=== PATIENT | female | born 1940 | race Caucasian/White ===

== ENCOUNTER 2019-07-17 12:24 | Emergency (ER) | payer MEDICARE, SELFPAY ==
[2019-07-17] VITALS (8 sets, daily range): BP systolic 140–167; BP diastolic 65–107; PULSE 61–85; RESP 16–20; TEMP 36.8; O2SAT 98–100
--- NOTE | ~2019-07-17 | XR_ITS ---
EXAMINATION: XR chest 2V 07/17/2019 13:11 INDICATION: Weakness. Chest pain. Syncope. PROCEDURE: 2 view chest COMPARISON: No prior studies for comparison. FINDINGS: The lungs are clear. The cardiomediastinal silhouette is within normal limits. There are no pleural effusions. There is no pneumothorax suspected. There is a large hiatal hernia. IMPRESSION: 1: NO ACUTE CARDIOPULMONARY DISEASE. Reviewed, dictated and finalized at location A.
--- NOTE | 2019-07-17 12:41 | ECG_ITS ---
Measurements Intervals [place] Rate: 62 P: 40 HI: 156 QRS: -46 QRSD: 88 T: 6 QT: 420 QTc: 428 Interpretive Statements SINUS RHYTHM ATRIAL PREMATURE COMPLEX LEFT AXIS DEVIATION LOW QRS VOLTAGE IN LIMB LEADS POOR R WAVE PROGRESSION, ANTERIOR LEADS BORDERLINE T WAVE ABNORMALITY- INFERIOR LEADS BASELINE WANDER- III, AVL, AVF, V3-V4 BORDERLINE ECG Electronically Signed On 07-19-2019 14:12:04 CDT by Alphonso Caal D.O.
[2019-07-17 12:56] LABS: Basophils Absolute Auto 0.1 K/mm3 (0.0-0.1); Basophils Percent Auto 0.6 % (0.2-1.2); Eosinophils Absolute Auto 0.1 K/mm3 (0-0.3); Hematocrit 47.3 % (37.0-47.0); Hemoglobin 15.3 g/dL (12.0-15.0); Immature Granulocyte Absolute 0.06 K/mm3 (0.00-0.031); Immature Granulocyte Percent A 0.5 % (0-0.5); Lymphocytes Absolute Auto 1.52 K/mm3 (0.9-3.2); Mean Corpuscular HGB Conc 32.3 g/dl (32-36); Mean Corpuscular Hemoglobin 29.5 pg (26-34); Mean Corpuscular Volume 91.3 fl (80-100); Mean Platelet Volume 10.5 fl (7.4-10.4); Monocytes Percent Auto 8.1 % (2.6-8.5); Neutrophils Percent Auto 76.8 % (45.5-73.1); Platelet Count Result 276 k/mm3 (150-375); Red Blood Count 5.18 M/mm3 (4.2-5.4); White Blood Count 11.7 K/mm3 (4.5-10.0)
[2019-07-17 13:09] LABS: Blood Urea Nitrogen 21 mg/dL (7-17); Calcium 9.3 mg/dL (8.4-10.2); Carbon Dioxide 27 mmol/L (22-30); Chloride 104 mmol/L (98-107); Estimated CRCL calculation 43 ml/min; Estimated Glomerular Filt Rate 48; Glucose 137 mg/dL (65-105); Potassium 4.3 mmol/L (3.4-5.0); Sodium 136 mmol/L (137-145)
[2019-07-17 13:13] LABS: Prothrombin Time 13.2 Seconds (11.1-14.7)
[2019-07-17 13:14] LABS: Partial Thromboplastin Time 25.6 SECONDS (22.3-36.8)
[2019-07-17 13:15] LABS: Lipase 169 U/L (23-300)
[2019-07-17 13:27] LABS: Troponin I < 0.012 ng/mL (0.000-0.034)
[2019-07-17] MEDS: SODIUM CHLORIDE 0.9% IV 1,000 ML 999 ML IV CONT (14:12)
--- NOTE | 2019-07-17 14:50 | ED.GENADULT ---
HPI - General Adult General Chief complaint: Weakness Stated complaint: WEAKNESS Time Seen by Provider: 07/17/19 12:29 History of Present Illness HPI narrative: Patient is a 78-year-old female who presents the ER with complains of chest pain yesterday evening and development of diarrhea and weakness today. Patient reports persistent fatigue at rest and with any sort of exertion. No fevers or chills or sweats. No known sick contacts. Symptoms started after eating a taco last night. No one else in the home is sick. No blood in stool. No persistent chest pain today. Patient reports she is bloated and has been belching. Related Data Home Medications Medication Instructions Recorded Confirmed dorzolamide-timolol [Cosopt] 1 drp OPHTHALMIC (EYE) BID 07/17/19 lisinopril-hydrochlorothiazide 1 tablet PO DAILY 07/17/19 metoprolol tartrate 50 mg PO DAILY 07/17/19 jjkpwwccpmyp-dsfurlsw-xkwvez 1 tablet PO DAILY 07/17/19 [Multivitamin 50 Plus] omeprazole 20 mg PO DAILY 07/17/19 Allergies Allergy/AdvReac Type Severity Reaction Status Date / Time erythromycin base AdvReac Nausea Verified 07/17/19 12:47 Review of Systems Review of Systems: All systems reviewed & are unremarkable except as noted in HPI and below Constitutional: Constitutional: Denies chills, Reports fatigue, Denies fever(s) and Reports weakness ENT: Denies nasal congestion and Denies sore throat Cardiovascular: Cardiovascular: Reports chest pain and Denies radiating jaw, neck or arm pain Respiratory: Respiratory: Denies cough, Denies dyspnea and Denies wheezing Gastrointestinal: Gastrointestinal: Reports abdominal pain, Reports bloating, Reports diarrhea, Denies nausea and Denies vomiting Genitourinary: Genitourinary: Denies nocturia and Denies dysuria Neurologic: Denies dizziness, Denies syncope, Denies focal weakness and Denies numbness [facility] Past Medical History Medical History (Updated 07/17/19 @ 16:39 by Americo Sheriff MD) Breast cancer GERD (gastroesophageal reflux disease) Hypertension Uterine cancer Surgical History Surgical History (Updated 07/17/19 @ 16:01 by Americo Sheriff MD) H/O lumpectomy History of cholecystectomy Social History Social History (Updated 07/17/19 @ 15:59 by Americo Sheriff MD) Smoking status: Never smoker Substance use: never Gender identity (if verbalized by the patient): Female Exam Narrative: Exam Narrative: GENERAL: Well-appearing, well-nourished, and in no acute distress. HEAD: Normocephalic, atraumatic. ENT: Mucous membranes moist. CHEST: Clear to auscultation. No respiratory distress. HEART: Regular rate and rhythm. No murmur heard. Normal peripheral pulses. ABDOMEN: Soft, nontender, nondistended, hyperactive bowel sounds. EXTREMITIES: Normal range of motion. No edema. SKIN: Warm, dry, no rash. NEURO: Alert and oriented x3. PSYCH: Normal mood and affect. Course Course Emergency Course: Patient and family informed of results. Have also spoken to the patient's primary care physician from [facility] Dr. Andino. He has been informed of all lab findings and about the EKG. He feels comfortable with patient's discharge home. He would like her to follow-up in his office and patient is aware of this. No chest pain while in the ER. She has been up and ambulatory with a steady gait. She had modest improvement with IV fluid and her condition. She has been tolerating oral fluids. Vital Signs Vital signs: Vital Signs Temperature 98.2 F 07/17/19 12:23 Pulse Rate 63 07/17/19 12:23 Respiratory Rate 07/17/19 12:23 Blood Pressure 152/65 H 07/17/19 12:23 Pulse Oximetry 99 07/17/19 12:23 Temperature 98.2 F 07/17/19 12:23 Pulse Rate 69 07/17/19 15:22 Respiratory Rate 20 07/17/19 15:22 Blood Pressure 167/95 H 07/17/19 15:22 Pulse Oximetry 100 07/17/19 15:22 Medical Decision Making Vital Signs Vital Signs: Vital Signs Temperature 98.2
[2019-07-17 15:45] LABS: Add Urine Microscopic? YES; Appearance Urine Cloudy (Clear); Bacteria Urine 2+ /hpf; Bilirubin Urine Negative (Negative); Blood Urine Negative (Negative); Color Urine Yellow (Yellow); Glucose Urine UA Negative (Negative); Ketones Urine Negative (Negative); Leukocyte Esterase Ur Negative LEU/UL (Negative); Mucus Urine Few /lpf; Nitrate Urine Negative (Negative); Protein Urine 1+ mg/dL (Negative); Specific Grav Ur 1.011 (1.001-1.035); Squamous Epithelial Cell Urine Many /hpf (Few); Urobilinogen Urine Negative mg/dL (<2.0); WBC Urine 0-3 /hpf
[2019-07-17 16:16] LABS: Troponin I < 0.012 ng/mL (0.000-0.034)
== END 2019-07-17 17:35 | disposition home or self-care (01) ==
PROVIDERS: Emergency Provider Emergency Medicine
DX: R53.1 Weakness (principal); R07.9 Chest pain, unspecified; K21.9 Gastro-esophageal reflux disease without esophagitis; I10 Essential (primary) hypertension; Z85.3 Personal history of malignant neoplasm of breast; Z85.42 Personal history of malignant neoplasm of other parts of uterus; I49.1 Atrial premature depolarization; R94.31 Abnormal electrocardiogram [ECG] [EKG]
CPT/HCPCS: 36415; 71046; 80048; 81001; 83690; 84484; 85025; 85610; 85730; 93005; 96360; 99284; J7030

== ENCOUNTER 2024-03-28 11:34 | Emergency (ER) | payer MEDICARE, SELFPAY ==
--- NOTE | ~2024-03-28 | XR_ITS ---
EXAMINATION: XR chest 2V DATE: 03/28/2024 12:39 INDICATION: Cough and fever with congestion TECHNIQUE: frontal and lateral views of the chest were obtained. COMPARISON: Chest radiograph dated 07/17/2019 FINDINGS: Density is an air-fluid level within a large retrocardiac hiatal hernia. Lungs remain clear with no f ocal airspace opacities, pulmonary edema, pleural effusion or pneumothorax. Heart size is normal. Mil d thoracic kyphosis with moderate spondylosis. IMPRESSION: 1. No acute cardiopulmonary disease. 2. Large hiatal hernia. Reviewed, dictated and finalized at location B. 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
[2024-03-28 11:46] VITALS: BP 176/69; PULSE 105; RESP 20; TEMP 38.3; O2SAT 94
--- NOTE | 2024-03-28 12:02 | ED.URI ---
HPI - URI/Sore Throat General Chief Complaint: Upper Respiratory Infection Stated Complaint: congestion/sob Time Seen by Provider: 03/28/24 12:00 Source: patient, family, RN notes reviewed and old records reviewed Mode of arrival: ambulatory Limitations: no limitations History of Present Illness HPI Narrative: 83 year old female presents to [facility] care accompanied by son with complaints of cough with congestion and fever since yesterday. Patient reports that she has history of asthma and has history of a-fib and takes blood thinner daily and also has pacemaker. Patient states that she notes some shortness of breath with exertion, reports that she does not have an inhaler., has not taken any OTC medications for her symptoms.Patient reports no sore throat or any ear pain. MD elicited complaint: fever, cough and other (some shortness of breath) Pertinent past history: asthma and other (afib) Onset (ago): day(s) (day 2 of symptoms) Consistency: constant Severity: moderate Able to tolerate fluids by mouth: Yes Treatments prior to arrival: none Related Data Home Medications ?Medication ?Instructions ?Recorded ?Confirmed ?Last Taken ?Type dorzolamide 22.3 mg-timolol 6.8 1 drp ophthalmic (eye) BID 07/17/19 07/17/19 History mg/mL eye drops (Cosopt) lisinopril 20 1 tablet PO DAILY 07/17/19 07/17/19 History mg-hydrochlorothiazide 25 mg tablet metoprolol tartrate 50 mg tablet 50 mg PO DAILY 07/17/19 07/16/19 History vngxwuuyrrix-dqepabqk-bkwrnr 1 tablet PO DAILY 07/17/19 07/16/19 History tablet (Multivitamin 50 Plus tablet) omeprazole 20 mg capsule,delayed 20 mg PO DAILY 07/17/19 07/16/19 History release apixaban 5 mg tablet (Eliquis) mg 03/28/24 Unknown History digoxin 125 mcg (0.125 mg) tablet 03/28/24 Unknown History losartan 25 mg tablet mg 03/28/24 Unknown History metoprolol succinate 100 mg mg PO 03/28/24 Unknown History tablet,extended release 24 hr Allergies Allergy/AdvReac Type Severity Reaction Status Date / Time erythromycin base AdvReac Nausea Verified 07/17/19 12:47 Review of Systems Review of Systems: CONSTITUTIONAL: Reports malaise, chills, sweats, or fever. EYES: Denies visual changes, redness, or discharge. ENT: Reports rhinorrhea, congestion,no sinus pain,no otalgia and no sore throat. CARDIOVASCULAR: Denies chest pain, palpitations, positive for peripheral edema. RESPIRATORY: Reports cough.? states dyspnea with exertion. GASTROINTESTINAL: Denies abdominal pain, nausea, vomiting, diarrhea SKIN: Denies rash or itching. MUSCULOSKELETAL: Denies myalgia. NEUROLOGIC: Denies headache. All systems reviewed & are unremarkable except as noted in HPI and below PMFSH Past Medical History Medical History (Updated 03/30/24 @ 09:19 by Maggie Martin NP) Asthma Hx of assisted use of blood thinners Pacemaker Atrial fibrillation Breast cancer Uterine cancer GERD (gastroesophageal reflux disease) Hypertension Surgical History Surgical History History of hysterectomy History of cholecystectomy H/O lumpectomy Social History Social History Smoking status: Never smoker Substance use: never Gender identity (if verbalized by the patient): Female Comments At time of signature, agree with nursing past medical, surgical, social and family history. There is no relevant family history pertinent to the presenting complaint Exam Narrative: GENERAL: chronic ill-appearing, well-nourished, and in no acute distress. HEAD: Normocephalic EYES: PERRLA, conjunctivae clear ENT: Nares clear, turbinates edematous and erythematous, clear discharge. Mucous membranes moist. TM pearly beatty with dull light reflex bilaterally; no tragal tenderness. Oropharynx erythematous without lesions. Tonsils not enlarged and without exudate, no drooling, no hoarseness, no trismus, uvula midline.post nasal drainage noted NECK: Supple. No lymphadenopathy CHEST:Decreased breath sounds to auscultation, breath sounds equal. No wheezing, rhonchi, rales, or stridor. No respiratory distress, speaks in full sentences.reports CASTREJON,SAO2 94% on room air HEART: Regular rate and rhythm. No murmur heard. SKIN: Warm, dry, no rash. NEURO: Alert and oriented x3. PSYCH: Normal mood and affect Course Course Emergency Course: Patient is aware of diagnosis, understands and agrees to treatment plan.? Anticipatory guidance given.? Patient agrees to follow-up as directed and is aware of reasons to seek care at the emergency department. Portions of this record may have been created with voice recognition software Level of Care: Express Care Visit Vital Signs Vital signs: Vital Signs Temperature 38.3 C H 03/28/24 11:46 Pulse Rate 105 H 03/28/24 11:46 Respiratory Rate 20 03/28/24 11:46 Blood Pressure 176/69 H 03/28/24 11:46 Pulse Oximetry 94 03/28/24 11:46 Oxygen Delivery Room Air 03/28/24 11:46 Temperature 38.3 C H 03/28/24 11:46 Pulse Rate 105 H 03/28/24 11:46 Respiratory Rate 20 03/28/24 11:46 Blood Pressure 176/69 H 03/28/24 11:46 Pulse Oximetry 94 03/28/24 11:46 Oxygen Delivery Room Air 03/28/24 11:46 Reviewed MDM - URI/Sore Throat MDM Narrative Medical decision making narrative: Differential diagnosis considered: Ding virus, strep pharyngitis, allergic rhinitis, upper respiratory tract infection, sinusitis, rhinosinusitis, nasopharyngitis. viral pharyngitis, otitis media, otitis externa, pneumonia, bronchitis, viral cough syndrome, viral syndrome, and influenza.? Exam findings show no acute concerns or changes; patient is non-toxic appearing and is in no distress.? Patient is appropriate for outpatient treatment and follow-up. Differential Diagnosis Differential diagnosis: Likely upper respiratory infection, viral infection, influenza and other (cough,pneumonia) Medical Records Attestation: I reviewed the patient's medical records. Lab Data Attestation: I reviewed the patient's lab results. Lab results narrative: Influenza A negative, Influenza B negative, COVID antigen negative Labs: Lab Results 03/28/24 Range/Units 11:52 POC Influenza A Ag Negative (Negative) POC Influenza B Ag Negative (Negative) Imaging Data Attestation: I personally reviewed and interpreted this imaging study as follows: My impression: no acute cardiopulmonary disease, large hiatal hernia Radiologist's impression: [facility] [address] [place] [address] XRay Report Signed Patient: Margarita Lloyd : 1940 MR#: [id number] Age: 83 Acct:[id number] Loc: [facility] ADM Date: 03/28/24Attending Dr: Ordering Physician: Maggie Martin APRN Date of Service: 03/28/24 Procedure(s): XR chest 2V Accession Number(s): [id number] cc: Maggie Martin APRN~ EXAMINATION: XR chest 2V DATE: 03/28/2024 12:39 INDICATION: Cough and fever with congestion TECHNIQUE: frontal and lateral views of the chest were obtained. COMPARISON: Chest radiograph dated 07/17/2019 FINDINGS: Density is an air-fluid level within a large retrocardiac hiatal hernia. Lungs remain clear with no focal airspace opacities, pulmonary edema, pleural effusion or pneumothorax. Heart size is normal. Mild thoracic kyphosis with moderate spondylosis. IMPRESSION: 1. No acute cardiopulmonary disease. 2. Large hiatal hernia. Reviewed, dictated and finalized at location B. ORN PHOTOGRAPHER Please be advised this is a medical document. It is intended for [id number] communication. It is written in medical language and may contain unfamiliar abbreviations or verbiage. Medical documents are intended to carry relevant information, facts as evident, and the clinical opinion of the practitioner at the time of the encounter. This report may have been done utilizing a voice recognition system. Attempts have been made to correct errors. However, there may be uncorrected grammatical, spelling, and recognition errors present. The file time of this note does not necessarily represent the time the patient was seen. Dictated By: Trevor Adams MD 03/28/24 1244 Signed By: <Electronically signed by Trevor Adams MD in OV> Critical Care Time Critical Care Time Critical Care Time: No Discharge Plan Discharge Clinical Impression: URI with cough and congestion Patient Disposition: Home, Self-Care Condition: Stable Instructions: Antibiotic Form, Upper Respiratory Infection (ED) Additional Instructions: Increase fluids especially juices and water Vijz-vnw-awbhojm cough and cold medicine of your choice for your symptoms Zyrtec,Claritin or Dasha with Coricidin brand decongestant daily Continue your inhaler/nebulizer as directed Tylenol for fevers heat to the face 20-30 minutes 4-6 times a day for pain Salt water gargles, throat lozenges or throat sprays as desired Antibiotic as directed--finished the medication If your symptoms persist, change or worsen significantly before you can contact your personal physician then please, without delay, go to the emergency department for further evaluation. Follow-up with PCP in 7-10 days or sooner if needed Follow up with PCP soon in regards to your blood pressure which is elevated above threshold for referral. Blood pressure above 120/80 may indicate pre-hypertension. 176/69 Monitor for fevers Patient Language: Bengali Prescriptions: New amoxicillin 500 mg capsule 500 mg PO Q8H Qty: 30 0RF Rx Instructions: take all doses albuterol sulfate 90 mcg/actuation HFA aerosol inhaler 2 puff inhalation QID PRN (Reason: shortness of breath or wheezing) Qty: 6.7 0RF No Action metoprolol succinate 100 mg tablet extended release 24 hr PO losartan 25 mg tablet digoxin 125 mcg (0.125 mg) tablet Eliquis 5 mg tablet metoprolol tartrate 50 mg Tablet 50 mg PO DAILY omeprazole 20 mg Capsule,Delayed Release(Dr/Ec) 20 mg PO DAILY lisinopril-hydrochlorothiazide 20-25 mg Tablet 1 tablet PO DAILY dorzolamide-timolol [Cosopt] 22.3-6.8 mg/mL Drops 1 drp OPHTHALMIC (EYE) BID Multivitamin 50 Plus Tablet 1 tablet PO DAILY promethazine 25 mg tablet 25 mg PO Q6H PRN (Reason: nausea and vomiting) Qty: 10 0RF Follow-up/Referrals: PHYSICIAN NOT ON STAFF,NONSTAFF [Primary Care Provider] - Time of Disposition: 13:04 Quality [place]ender Coma Scale Eyes: Open Verbal: Oriented and Alert Motor: Follows Commands Callender Coma Total Score: 15
[2024-03-28 12:45] LABS: EDINFLUASCREEN Negative (Negative); EDINFLUBSCREEN Negative (Negative)
== END 2024-03-28 13:15 | disposition home or self-care (01) ==
PROVIDERS: Emergency Provider Registered Nurse
DX: J06.9 Acute upper respiratory infection, unspecified (principal); I48.91 Unspecified atrial fibrillation; I10 Essential (primary) hypertension; Z79.01 Long term (current) use of anticoagulants; Z85.42 Personal history of malignant neoplasm of other parts of uterus
CPT/HCPCS: 71046; 87804; 99213; G0463

== ENCOUNTER 2024-04-09 14:46 | Emergency (ER) | payer MEDICARE, SELFPAY ==
--- OUTSIDE RECORDS SUMMARY | 2024-04-09 15:21 | XMS_ITS ---
Author Organization [facility] Address [address] [address] Care Team Providers Care Cell Stripper Final Name Role Phone Sakshi Hernandez Primary Care Provider Unavaila Jordyn Travis Unavailable ALLERGIES Allergen (clinical drug ingredient) Drug/Non Drug Allergy documented on EMR Reaction Allergy Type Onset Date Status erythromycin Erythromycin Unknown Drug Allergy A ctive RESULTS Component Value Reference Range Notes TSH Reviewed date:01/15/2024 01:00:13 PM Interpretation: Performing Lab:[facility], [employer] [facility], Phone - [phone], Director - Edward Notes/Report: TSH 2.790 0.450-4.500 uIU/mL T4, Free Reviewed date:01/15/2024 11:02:28 AM Interpretation: Performing Lab:[facility], [address] [place] [address], Phone - [phone], Director - Edward Notes/Report: T4,Free(Direct) 1.18 0.82-1.77 ng/dL T3, Total Reviewed date:01/15/2024 12:39:45 PM Interpretation: Performing Lab:[facility], [employer] [facility], Phone - [phone], [facility] Notes/Report: Triiodothyronine (T3) 120 71-180 ng/dL REASON FOR VISIT Nodular Goiter MEDICATIONS Medication SIG (Take, Route, Frequency, Duration) Notes Start Date End Date Status Eliquis 5 MG 1 tablet Orally Twic e a day for 30 day(s) Active Multivitamin - 1 tablet Orally Once a day for 30 day(s) Active Losartan Potassium 25 MG 1 tablet Orally Once a day for 30 day(s) Active Metoprolol Tartrate 75 MG 1 tablet with food Orally Two Times a Day Active Furosemide 40 MG 1 tablet Orally Once a day Active Xanax 0.5 MG 1 tablet Orally as needed Active Digoxin 125 MCG 1 tablet Orally m w f Active PreserVision AREDS - as directed Orally Two Times a Day Active SOCIAL HISTORY Tobacco Use: Social History Observation Description Date Details (start date - stop date) Never Smoker NA - NA Sex Assigned At : Social History Observation Description Sex Assigned At Unknown Tobacco Use/Smoking Question Answer Notes Are you a nonsmoker VITAL SIGNS BMI 33.80 kg/m2 01/10/2024 Blood pressure systolic 122 mm Hg 01/10/20 Blood pressure diastolic 68 mm Hg 024 Heart Rate 64 /min 01/10/2024 Height 67 in 01/10/2024 Weight 215.8 lbs 01/10/2024 wt 205 on 06-05-23 Encounters Encounter Location Date Provider Diagnosis [facility] [address] [address] 01/10/2024 Jordyn Aguila Nodular goiter E04.9 ASSESSMENTS Encounter Date Diagnosis Assessment Notes Treatment Notes Treatment Clinical Notes 01/10/2024 Nodular goiter (ICD-10 - E04.9) 06/03 FNA biopsy L thyroid nodule AUS 05/06 US thyrid shows diffuse heterogeneity. In the L thyroid lobe there is a lower pole hypoechoic nodule meauring 1.7 x 1.3 x 1.2 cm (stable) and a hypoechoic upper pole nodule measuring 2.4 x 0.9 x 1.5 cm (prior 2.1 x 1.2 x 1.2 cm). 04/04 There is diffuse heterogeneity. In the L mid-lobe there is a complex nodule measuring 2.2 x 1.1 cm. In the L lower lobe there is a complex nodule measuring 2.4 x 1.6 cm. Prior 2 L thyroid nodules measuring 2.1 x 1.8 cm were measured. 11/01 US thyroid shows 2 left hyperechoic thyroid nodules measuring 2.1 cm amd 1.8 cm (TR3) 11/01 CT chest shows hypodense nodules in L thryoid lobe measuring up to 1.5 cm TPO and TG AB negative She denies obstructive symptoms. F/u US 06/04. PLAN OF TREATMENT Treatment Notes Assessment Notes Nodular goiter She denies obstructi ve symptoms. F/u US 06/04. Future Test Test Name Order Date -Ultrasound: Thyroid 05/20/2024 Next Appt Details Follow Up: 06/04 1 wk after U S, IH US 06/04, Reason: Provider Name:Jordyn Aguila, 05/17/2024 12:30:00 PM, [address] [facility] [address], [place], [address], Provider Name:Jordyn Aguila, 05/29/2024 03:15:00 PM, [address] [facility] [address], [place], [address], Progress Notes * Examination Category Sub-Category Detail Notes General Examination GENERAL APPEARANCE: appearan ce wnl HEAD: normocephalic, atrau matic EYES: conjunctivae and lid s wnl. no exophthalmos NECK: supple, no lymphaden opathy HEART: S1, S2, No murmurs. RRR CHEST: LUNGS: effort nonlabored. c lear to auscultation bilaterally ABDOMEN: no distention, star s, or tenderness. bowel sounds normal NEUROLOGIC: no tremor. deep tend on reflexes normal SKIN: no apparent lesions EXTREMITIES: no edema BREASTS: MUSCULOSKELETAL: station and gait nor mal. Muscle strength normal PSYCH: oriented x 3. memory wnl THYROID L lobe slightly irre gular. nontender
--- OUTSIDE RECORDS SUMMARY | 2024-04-09 15:22 | XMS_ITS ---
Author Organization [facility] Address [address] [facility] [address] [place] [address] Care Team Providers Care Math Tutor Name Role Phone Sakshi Hernandez Primary Care Provider Kofi Penningtonman Jordyn Aguila [phone] REASON FOR VISIT Nodular Goiter Encounters Encounter Location Date Provider Diagnosis [facility] [address] [facility] [address] [address] 12/06/2023 Jordynporfirio Tuttle [place] PLAN OF TREATMENT Next Appt Details Provider Name:Jordyn Palacios kat Aguila, 05/17/2024 12:30:00 PM, [address], [address], Provider Name:Jordyn stephens [place], 05/29/2024 03:15:00 PM, [address], [address], Progress Notes * Examination Category Sub-Category Detail [...]
--- OUTSIDE RECORDS SUMMARY | 2024-04-09 15:22 | XMS_ITS ---
Author Organization [facility] Address [address] [facility] [address] [place] [address] Care Team Providers Care Image Consultant Name Role Phone Sakshi Hernandez Primary Care Provider Kofi Penningtonman Jordyn Aguila REASON FOR VISIT Nodular Goiter Encounters Encounter Location Date Provider Diagnosis [facility] [address] [facility] [address], [place] [address] 12/25/2023 Jordynporfirio Tuttle [place] PLAN OF TREATMENT Next Appt Details Provider Name:Jordyn Palacios kat Aguila, 05/17/2024 12:30:00 PM, [address], [address], Provider Name:Jordyn stephens [place], 05/29/2024 03:15:00 PM, [address], [address], Progress Notes * Examination Category Sub-Category Detail [...]
--- OUTSIDE RECORDS SUMMARY | 2024-04-09 15:22 | XMS_ITS | Patient Health Record ---
Author Organization [facility] Address [address] [address] Care Team Providers Care Ingot Buggy Operator Name Role Phone Sakshi Hernandez Primary Care Provider Unavaila Jordyn Travis Unavailable [phone] ALLERGIES Allergen (clinical drug ingredient) Drug/Non Drug Allergy documented on EMR Reaction Allergy Type Onset Date Status erythromycin Erythromycin Unknown Drug Allergy A ctive RESULTS Component Value Reference Range Notes -FNA Thyroid (w/Affirma) Reviewed date:06/05/2023 01:53:52 PM Interpretation: Performing Lab: Notes/Report: -FNA Thyroid (w/Affirma) Reviewed date:06/05/2023 01:53:52 PM Interpretation: Performing Lab: Notes/Report: TSH Reviewed date:01/15/2024 01:00:13 PM Interpretation: Performing Lab:[email or web address], [email or web address] [facility], Phone - [phone], Director - Edward Notes/Report: TSH 2.790 0.450-4.500 uIU/mL T4, Free Reviewed date:01/15/2024 11:02:28 AM Interpretation: Performing Lab:[email or web address], [email or web address] [facility], Phone - [phone], Director - Edward Notes/Report: T4,Free(Direct) 1.18 0.82-1.77 ng/dL T3, Total Reviewed date:01/15/2024 12:39:45 PM Interpretation: Performing Lab:[email or web address], [id number] [facility], Phone - [phone], Director - Edward Notes/Report: Triiodothyronine (T3) 120 71-180 ng/dL REASON FOR REFERRAL No Information MEDICATIONS Medication SIG (Take, Route, Frequency, Duration) Notes Start Date End Date Status Eliquis 5 MG 1 tablet Orally Twic e a day for 30 day(s) Active Xanax 0.5 MG 1 tablet Orally as needed Active Multivitamin - 1 tablet Orally Once a day for 30 day(s) Active Losartan Potassium 25 MG 1 tablet Orally Once a day for 30 day(s) Active Metoprolol Tartrate 75 MG 1 tablet with food Orally Two Times a Day Active Digoxin 125 MCG 1 tablet Orally Active Furosemide 40 MG 1 tablet Orally Once a day Active PreserVision AREDS - as directed Orally Two Times a Day Active SOCIAL HISTORY Tobacco Use: Social History Observation Description Date Details (start date - stop date) Never Smoker NA - NA Sex Assigned At : Social History Observation Description Sex Assigned At Unknown Tobacco Use/Smoking Question Answer Notes Are you a nonsmoker PROBLEMS Problem Type ICD Code Onset Dates Problem Status W/U Status Risk SNOMED Code Notes Problem Nodular goiter (E04.9) Active confirmed Nodular goiter ([id number]) 06/03 FNA biopsy L thyroid nodule AUS [...] 1.5 cm TPO and TG AB negative VITAL SIGNS Heart Rate 64 /min 01/10/2024 wt 205 on Blood pressure diastolic 68 mm Hg 01/10/2024 wt 205 on 06-05-23 Height 67 in 01/10/2024 wt 205 on Blood pressure systolic 122 mm Hg 01/10/2024 wt 2 05 on 06-05-23 Weight 215.8 lbs 01/10/2024 wt 205 on BMI 33.80 kg/m2 01/10/2024 wt 205 on Encounters Encounter Location Date Provider Diagnosis [facility] [address] [address] 05/17/2023 Jordynporfirio Penningtonarleen Aguila [facility] [address] [address] 06/05/2023 Jordyn Parag Aguila Nodular goiter E04.9 [facility] [address] [address] 12/06/2023 Jordyn Parag Agu[facility] [address] [address] 12/25/2023 Jordyn Aguila [facility] [address] [address] 01/10/2024 Jordyn Parag Aguila Nodular goiter E04.9 [facility] [address] [address] 04/21/2023 Jordyn Parag Agu[facility] [address] [address] 05/15/2023 Jordyn Tuttle [place] Nodular goiter E04.9 [facility] [address] [address] 06/08/2023 Jordynporfirio Penningtonarleen Aguila [facility] [address] [address] 09/28/2023 Jordynporfirio Tuttle [place] ASSESSMENTS Encounter Date Diagnosis Assessment Notes Treatment Notes Treatment Clinical Notes 06/05/2023 Nodular goiter (ICD-10 - E04.9) 06/03 FNA [...] TPO and TG AB negative She denies dypshgia, dysphonia, adn dyspnea. Reviewed FNA biopsy of L thyroid nodules with AUS and sample is sent for thyrgenx. Reviewed risk of malignancy for this finding ranges fro 13-30%. Pending thyrgenx will consider f/u with serial US or lobectomy/thyroide ctomy. 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 01/10/2024 Nodular goiter (ICD-10 - E04.9) 06/03 [...] She denies obstructive symptoms. F/u US 06/04. 05/15/2023 Nodular goiter (ICD-10 - E04.9) PLAN OF TREATMENT Future Test Test Name Order Date -Ultrasound: Thyroid 05/20/2024 Next Appt Details Provider Name:Jordyn Aguila, 05/17/2024 12:30:00 PM, [address] [facility] [address], [place], [address], Provider Name:Jordyn Aguila, 05/29/2024 03:15:00 PM, [address] [facility] [address], [place], [address], Insurance Providers Payer Name Payer Address Payer Phone Subscriber Number Group Number Insured Name Patient Relationship to Insured Coverage Start Date Coverage End Date Medicare Complete ([facility]) [address] [address] [place] [address] [id number] LloydMargarita Self - patient is the insured 4 MEDICAL (GENERAL) HISTORY Medical History History ICD Code MTP Arthritis Anxiety HTN Glaucoma Breast cancer GERD High Cholesterol Lymphedema of leg Uterine Cancer CVA Atrial Fibrillation with rapid ventricul ar response Surgical History Surgery Date(Month/Year) Cholecysectomy Hysterectomy (Uterine Cacner) Lumpectomy (Breast Cancer) pacemaker implant 11/2022 Hospitalization History Reason Date(Month/Year) no recent hospitalization
--- OUTSIDE RECORDS SUMMARY | 2024-04-09 15:22 | XMS_ITS | Encounter Summary ---
Author Organization [facility] Address [address] [place] [address] Care Team Providers Care Wicker Worker Name Role Phone Unavailable Primary Care Provider Unavailabl e Encounter Details Date Type Department Care Team (Late st Contact Info) Description 05/06/1999 Outpatient Historical [facility] Sim López MD [address] 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
--- OUTSIDE RECORDS SUMMARY | 2024-04-09 15:22 | XMS_ITS | Referral Summary ---
Author Organization [facility] Address [address] [place] [address] Care Team Providers Care Keypunch Operator Name Role Phone Sim López MD Primary Care Provider [phone] Encounters Date Type Department Care Team Description 01/30/2024 Telephone [facility] Scheduling [address] [place] [address] Snow Lawrence from Last 3 Months Allergies Active Allergy Reactions Criticality Noted Date Comments Erythromycin Base Diarrhea Low 04/22/2010 Medications lisinopril-hydro CHLOROthiazide (PRINZIDE,ZESTOR ETIC) 20-25 mg per tabletIndication s:hypertension Activ e metoprolol (LOPRESSOR) 50 mg tablet 11/13/2017 Active multivitamin tabletIndication s:Vitamin Deficiency Prevention Active omeprazole (PriLOSEC) 40 mg capsule Active acetaminophen (TYLENOL) 325 mg tablet Active Eliquis 5 mg tablet Take 1 tablet (5 mg total) by mouth 2 (two) times a day 05/29/2022 Active lisinopriL (PRINIVIL,ZESTRI L) 10 mg tablet Take 1 tablet (10 mg total) by mouth daily 03/28/2022 Active meclizine (ANTIVERT) 12.5 mg tablet Take by mouth 3 (three) times a day as needed 05/20/2022 Active Active Problems Problem Noted Date Diagnosed Date Malignant neoplasm of uterus (CMS/HCC) 7 Gastroesophageal reflux disease 10/29/2014 Asthma 10/29/2014 Malignant neoplasm of breast 10/29/2014 Hyperlipidemia 10/29/2014 Hypertension 10/29/2014 Lymphedema 10/29/2014 Immunizations Name Administration Dates Next Due Moderna SARS-CoV-2 Monovalent Vaccination (12+ Y RS) 05/30/2020,05/02/2020 Social History Tobacco Use Types Packs/Day Years Used Date Smoking Tobacco: Never Smokeless Tobacco: Never Tobacco Cessation:Counseling Given: Not Answered Alcohol Use Standard Drinks/Week Comments No 0 (1 standard drink = 0.6 oz pur e alcohol) Comments No Sex and Gender Information Value Date Recorded Sex Assigned at Not on file Legal Sex Female 7:48 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 Gender Identity Not on file Sexual Orientation Not on file Last Filed Vital Signs Vital Sign Reading Time Taken Comments Blood Pressure 180/73 06/14/2022 1:54 PM CDT Pulse 73 06/14/2022 1:54 PM CDT Temperature 37.1 ??C (98.7 ??F) 06/14/2022 1:54 PM CD T Respiratory Rate 16 06/14/2022 1:54 PM CDT Oxygen Saturation 97% 06/14/2022 1:54 PM CDT Inhaled Oxygen Concentration - - Weight 93.9 kg (207 lb 1.6 oz) 06/14/2022 1:54 P M CDT Height 162.6 cm (5' 4 ) 12/26/2017 3:02 PM CDT Body Mass Index 35.55 12/26/2017 3:02 PM CDT Plan of Treatment Not on file Insurance MEDICARE COMMERCIAL GENERIC MEDICARE MEDICARE COMMERCIAL [facility] Care Teams Keypunch Operator Relationship Specialty Start Date End Date Sim López MD [address] [place] [address] [address] [place] [address] PCP - General Internal Medicine 01/18/19
--- OUTSIDE RECORDS SUMMARY | 2024-04-09 15:22 | XMS_ITS | Clinical Summary ---
Author Organization [facility] Address [address] [place] [address] Phone Care Team Providers Care Elementary Teacher Name Role Phone Unavailable Primary Care Provider Unavailabl e Allergies Active Allergy Reactions Criticality Noted Date Comments Erythromycin Base Diarrhea Low 04/22/2010 Medications omeprazole (PriLOSEC) 20 MG CAPSULE DELAYED RELEASE TAKE 1 CAPSULE BY MOUTH EVERY DAY 01/08/2020 Active lisinopril-hydr oCHLOROthiazide (PRINZIDE, ZESTORETIC) 20-25 MG Tablet Take 1 Tab by mouth daily. 01/08/2020 Active metoprolol tartrate (LOPRESSOR) 50 MG Tablet 11/13/2017 Active Multiple Vitamin (Multi-Vitamin) Tablet Active ALPRAZolam (XANAX) 0.25 MG Tablet TAKE 1 TABLET BY MOUTH EVERY DAY NEEDED FOR ANXIETY 11/29/2019 Active Active Problems No known active problems Social History Tobacco Use Types Packs/Day Years Used Date Smoking Tobacco: Never Smokeless Tobacco: Never Alcohol Use Standard Drinks/Week Comments Not Currently 0 (1 standard drink = 0.6 oz pur e alcohol) Comments Unknown Sex and Gender Information Value Date Recorded Sex Assigned at Not on file Legal Sex Female 3:36 PM STUFFED CASING TIER Gender Identity Not on file Sexual Orientation Not on file Last Filed Vital Signs Vital Sign Reading Time Taken Comments Blood Pressure 126/68 03/17/2020 3:52 PM STUFFED CASING TIER Pulse 74 03/17/2020 3:52 PM STUFFED CASING TIER Temperature 36.8 ??C (98.2 ??F) 03/17/2020 3:52 PM CS T Respiratory Rate 20 03/17/2020 3:52 PM STUFFED CASING TIER Oxygen Saturation 98% 03/17/2020 3:52 PM STUFFED CASING TIER Inhaled Oxygen Concentration - - Weight 94.8 kg (209 lb) 03/17/2020 3:52 PM STUFFED CASING TIER Height 167.6 cm (5' 6 ) 03/17/2020 3:52 PM STUFFED CASING TIER Body Mass Index 33.73 03/17/2020 3:52 PM STUFFED CASING TIER Plan of Treatment Health Maintenance Due Date Last Done Comments DEXA Bone Density 1940 Hepatitis C Virus (HCV) Screening 1940 TdaP Immunization 1940 Pneumococcal Immunization (5 0+ years) (1 of 1 - PCV) 11/25/1989 Zoster Immunization (1 of 2) 11/25/1989 Respiratory Syncytial Virus (RSV) Immunization (Adult) (1 - 1-dose 75+ series) 11/25/2014 Influenza Immunization (#1) 2023 SARS-COV-2 Immunization ( season) 2023 05/30/2020, 05/02/2020 Hepatitis B Immunization Aged Out No longer eligible based on patient's age to complete this topic Meningococcal Immunization (ACWY) Aged Out No longer eligible b ased on patient's age to complete this topic Rotavirus Immunization Aged Out No lo nger eligible based on patient's age to complete this topic Insurance MEDICARE Member Subscriber Plan / Payer (Ef fective 2004-Present) Name:Margarita Lloyd Member ID:[id number] Relation to Subscriber:Self Name:Margarita Lloyd Subscriber ID:[id number] Payer ID:[id number] Group ID:Not on file Type:Not on file Address: [facility] [address] [facility] [employer] [facility] [place] [address] [place] [address]
--- OUTSIDE RECORDS SUMMARY | 2024-04-09 15:22 | XMS_ITS | Clinical Summary ---
Author Organization [facility] Address [address] [facility] Attn: Epic Prelude ADT [place] [address] Care Team Providers Care Industry Analyst Name Role Phone Unavailable Primary Care Provider Unavailabl e Social History Tobacco Use Types Packs/Day Years Used Date Smoking Tobacco: Never Assessed Comments Unknown Sex and Gender Information Value Date Recorded Sex Assigned at Not on file Legal Sex Female 2:55 AM TRY OUT PERSON Gender Identity Not on file Sexual Orientation Not on file Plan of Treatment Health Maintenance Due Date Last Done Comments DTAP/TDAP/TD VACCINES (1 - Tdap) 11/25/1959 PNEUMOCOCCAL VACCINE 65+ YEARS (1 of 1 - PCV) 11/25/18 90 ZOSTER VACCINE (1 of 2) 11/25/1989 OSTEOPOROSIS SCREENING 11/25/2004 RSV VACCINE (60+ or ) (1 - 1-dose 75+ series) 11/25/2014 INFLUENZA VACCINE (#1) 2023
--- OUTSIDE RECORDS SUMMARY | 2024-04-09 15:22 | XMS_ITS | Clinical Summary ---
Author Organization [facility] Address [address] [place] [address] Care Team Providers Care Sheetmetal Patternmaker Name Role Phone Sim López MD Primary Care Provider [phone] Allergies Active Allergy Reactions Criticality Noted Date [...] 10/29/2014 Hyperlipidemia 10/29/2014 Hypertension 10/29/2014 Lymphedema 10/29/2014 Encounters Date Type Department Care Team Description 01/30/2024 Telephone [facility] Scheduling [address] [place] [address] Snow Lawrence from Last 3 Months Immunizations Name Administration Dates Next Due Moderna SARS-CoV-2 Monovalent Vaccination (12+ Y RS) 05/30/2020,05/02/2020 Surgical History Surgery Date Site/Laterality Comments HYSTERECTOMY Hysterectomy - (Added by Conv) [place] EXC CYST/ABERRANT BREAST TISSUE OPEN 1/> LESION Breast Surgery Lumpectomy - (Added by TW Conv) [place] CHOLECYSTECTOMY Cholecystectomy - (Added by Conv) Medical History Medical History Date Comments History of malignant neoplas m of other parts of uterus Uterine Cancer - (Added by T W Conv) Personal history of other di seases of the nervous system and sense organs History of glaucoma - (Added by Conv) Uterine cancer (CMS/HCC) (HCC) Breast cancer (HCC) Hypertension Family History Medical History Relation Name Comments Prostate cancer Brother Family histo ry of prostate cancer - (Added by Conv) Stroke Father Stroke Syndrome - (Added by TW Conv) Ovarian cancer Mother Ovarian Cance r - (Added by Conv) Breast cancer Mother's Sister Breast Canc er - (Added by Conv) Relation Name Status Comments Brother Father Mother Mother's Sister Social History Tobacco Use Types Packs/Day Years Used Date Smoking Tobacco: Never Smokeless Tobacco: Never Tobacco Cessation:Counseling Given: Not Answered Alcohol Use Standard Drinks/Week Comments No 0 (1 standard drink = 0.6 oz pur e alcohol) Comments No Sex and Gender Information Value Date Recorded Sex Assigned at Not on file Legal Sex Female 7:48 PM [facility] Gender Identity Not on file Sexual Orientation Not on file Obstetrics History Para Term AB IAB SAB Ectopic Multiple Livin g Live Births 4 3 3 1 1 3 Date Outcome GA Total Labor Labor/2nd/3rd Weight Sex Type Anes PTL Arlette A1 A5 Name Clin Term Term Term SAB Last Filed Vital Signs Vital Sign Reading [...] 12/26/2017 3:02 PM CDT Plan of Treatment Health Maintenance Due Date Last Done Comments Depression Screening 1940 Fall Risk Assessment 1940 Osteoporosis Screening-Bone Density Scan 1940 Pneumococcal vaccine 65+ (1 of 2 - PCV) 11/25/1945 DTaP/Tdap/Td Vaccine (1 - Tdap) 11/25/1950 Hepatitis B Screening 11/25/1957 Zoster Vaccine (1 of 2) 11/25/1989 Well Visit 65+ 11/25/2004 Covid-19 Vaccine (5 - 2023-2 5 season) 2023 05/30/2020, 05/30/2020, 05/02/2020, Additional history exists Influenza Vaccine (#1) 2023 01/08/2020 Insurance MEDICARE COMMERCIAL GENERIC MEDICARE MEDICARE COMMERCIAL GENERIC Care Teams Sheetmetal Patternmaker Relationship Specialty Start Date End Date Sim López MD [address] [address] PCP - General Internal Medicine 01/18/19
--- NOTE | 2024-04-09 16:07 | ED.GENADULT ---
HPI - General Adult General Chief complaint: Upper Respiratory Infection Stated complaint: Chest Congestion/Shortness of Breath/Cough Source: patient and family Mode of arrival: ambulatory Limitations: no limitations History of Present Illness HPI narrative: Patient presents for evaluation of respiratory symptoms. She was evaluated here on 03/28/2024 for respiratory symptoms. She had a chest x-ray which was normal. She was diagnosed with a URI and was given a prescription for amoxicillin. She indicates her symptoms improved while on medication but she had recurrence after completing medication. She reports cough, shortness of breath, and lower extremity swelling. Some of the symptoms are chronic, however they have acutely worsened. She has an underlying history of atrial fibrillation, congestive heart failure, asthma, breast cancer, hypertension, and GERD. She is anticoagulated with eliquis and has a pacemaker. She denies any fever, chills, nausea, vomiting, diarrhea. She lives at home alone. She gets short of breath with ambulation. She is not taking any afak-zdj-lcysnqs medications to assist with her symptoms. She does not smoke. Related Data Home Medications ?Medication ?Instructions ?Recorded ?Confirmed ?Last Taken ?Type dorzolamide 22.3 mg-timolol 6.8 1 drp ophthalmic (eye) BID 07/17/19 07/17/19 History mg/mL eye drops (Cosopt) lisinopril 20 1 tablet PO DAILY 07/17/19 07/17/19 History mg-hydrochlorothiazide 25 mg tablet metoprolol tartrate 50 mg tablet 50 mg PO DAILY 07/17/19 07/16/19 History vljisoxwezoo-teicmrgg-bazoel 1 tablet PO DAILY 07/17/19 07/16/19 History tablet (Multivitamin 50 Plus tablet) omeprazole 20 mg capsule,delayed 20 mg PO DAILY 07/17/19 07/16/19 History release apixaban 5 mg tablet (Eliquis) mg 03/28/24 Unknown History digoxin 125 mcg (0.125 mg) tablet 03/28/24 Unknown History losartan 25 mg tablet mg 03/28/24 Unknown History metoprolol succinate 100 mg mg PO 03/28/24 Unknown History tablet,extended release 24 hr Allergies Allergy/AdvReac Type Severity Reaction Status Date / Time erythromycin base AdvReac Nausea Verified 07/17/19 12:47 Review of Systems Review of Systems: CONSTITUTIONAL: Denies fever, chills, or sweats. EYES: Denies visual changes, redness, or discharge. ENT: Denies rhinorrhea, congestion, sore throat, or otalgia. CARDIOVASCULAR: Reports leg swelling bilaterally. Denies chest pain, palpitations RESPIRATORY: Reports cough and shortness of breath. GASTROINTESTINAL: Denies abdominal pain, nausea, vomiting, or diarrhea. GENITOURINARY: Denies dysuria or hematuria. SKIN: Denies rash or itching. MUSCULOSKELETAL: Denies back pain, joint pain, or myalgia. NEUROLOGIC: Denies headache, numbness, dizziness, or weakness. PSYCHIATRIC: Denies anxiety or depression. 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 HEAD: Normocephalic, atraumatic. EYES: PERRLA and EOMI. ENT: Nares clear, no rhinorrhea or epistaxis. Mucous membranes moist. Oropharynx without tonsillar hypertrophy exudate or other lesions. Bilateral TMs pearly beatty nonbulging NECK: Supple. No adenopathy or masses. No carotid bruits or JVD CHEST: Rales noted in lung wooten bilaterally. Cough present on exam. HEART: Regular rate and rhythm. No murmur heard. Normal peripheral pulses. ABDOMEN: Soft, nontender, nondistended, normal active bowel sounds. EXTREMITIES: Normal range of motion. No edema. SKIN: Warm, dry, no rash. NEURO: No focal deficits. Alert and oriented x3. PSYCH: Normal mood and affect. Course Course Emergency Course: This is an 83-year-old female who presented for evaluation of respiratory symptoms. Ambulated patient in the hallway she became quite dyspneic. Her oxygen saturation fell to 90% on room air and heart rate accelerated into the 110's. I recommended she go to the hospital for further evaluation. I suspect this is a congestive heart failure exacerbation. Patient is agreeable to this plan. [facility] as her facility of choice. I contacted the emergency department at [facility] and spoke with Dr Reed, who agrees to accept pt for transfer there. Pt was transferred via private vehicle. Level of Care: Express Care Visit Discharge Plan Discharge Clinical Impression: Shortness of breath, Oxygen desaturation, History of chronic CHF Patient Disposition: Acute Care Hospital Condition: Stable Patient Language: Afghan Prescriptions: No Action metoprolol succinate 100 mg tablet extended release 24 hr PO losartan 25 mg tablet digoxin 125 mcg (0.125 mg) tablet Eliquis 5 mg tablet amoxicillin 500 mg capsule 500 mg PO Q8H Qty: 30 0RF Rx Instructions: take all doses albuterol sulfate 90 mcg/actuation HFA aerosol inhaler 2 puff inhalation QID PRN (Reason: shortness of breath or wheezing) Qty: 6.7 0RF metoprolol tartrate 50 mg Tablet 50 mg PO DAILY omeprazole 20 mg Capsule,Delayed Release(Dr/Ec) 20 mg PO DAILY lisinopril-hydrochlorothiazide 20-25 mg Tablet 1 tablet PO DAILY dorzolamide-timolol [Cosopt] 22.3-6.8 mg/mL Drops 1 drp OPHTHALMIC (EYE) BID Multivitamin 50 Plus Tablet 1 tablet PO DAILY promethazine 25 mg tablet 25 mg PO Q6H PRN (Reason: nausea and vomiting) Qty: 10 0RF Follow-up/Referrals: UNKNOWN,DOCTOR [Primary Care Provider] - Time of Disposition: 16:43
== END 2024-04-09 16:55 | disposition short-term general hospital (02) ==
PROVIDERS: Emergency Provider Nurse Practitioner
DX: R06.02 Shortness of breath (principal); R09.02 Hypoxemia; I50.9 Heart failure, unspecified; I11.0 Hypertensive heart disease with heart failure; I48.91 Unspecified atrial fibrillation; J45.909 Unspecified asthma, uncomplicated; K21.9 Gastro-esophageal reflux disease without esophagitis; Z95.0 Presence of cardiac pacemaker; Z85.3 Personal history of malignant neoplasm of breast; Z85.42 Personal history of malignant neoplasm of other parts of uterus; Z79.01 Long term (current) use of anticoagulants
CPT/HCPCS: 99212; G0463

== ENCOUNTER 2024-04-09 17:10 | Emergency (ER) | payer MEDICARE, SELFPAY ==
--- NOTE | ~2024-04-09 | XR_ITS ---
EXAMINATION: XR chest 2V DATE: 04/09/2024 INDICATION: Cough. TECHNIQUE: Frontal and lateral views of the chest were obtained. COMPARISON: Chest 2 views 03/28/2024 FINDINGS: There is no pneumonia, pleural effusion, or pneumothorax. The heart is normal. There is a l arge hiatal hernia. There is a left chest wall pacer with leads in the right atrium and right ventric le. IMPRESSION: 1. Large hiatal hernia. Reviewed, dictated and finalized at location A. ENCE CUSTODIAN IMPRESSION: 1. Large hiatal hernia.
--- OUTSIDE RECORDS SUMMARY | 2024-04-09 17:13 | XMS_ITS | Referral Summary ---
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
--- OUTSIDE RECORDS SUMMARY | 2024-04-09 17:13 | XMS_ITS | Clinical Summary ---
Author Organization [facility] Address [address] [place] [phone] Phone Care Team Providers Care Automotive Parts Counter Person Name Role Phone Unavailable Primary Care Provider [...] on file Legal Sex Female 3:36 PM FIBER OPTIC ASSEMBLER Gender Identity Not on file Sexual Orientation Not on file Last Filed Vital Signs Vital Sign Reading Time Taken Comments Blood Pressure 126/68 03/17/2020 3:52 PM FIBER OPTIC ASSEMBLER Pulse 74 03/17/2020 3:52 PM FIBER OPTIC ASSEMBLER Temperature 36.8 ??C (98.2 ??F) 03/17/2020 3:52 PM CS T Respiratory Rate 20 03/17/2020 3:52 PM FIBER OPTIC ASSEMBLER Oxygen Saturation 98% 03/17/2020 3:52 PM FIBER OPTIC ASSEMBLER Inhaled Oxygen Concentration - - Weight 94.8 kg (209 lb) 03/17/2020 3:52 PM FIBER OPTIC ASSEMBLER Height 167.6 cm (5' 6 ) 03/17/2020 3:52 PM FIBER OPTIC ASSEMBLER Body Mass Index 33.73 03/17/2020 3:52 PM FIBER OPTIC ASSEMBLER Plan of Treatment Health Maintenance Due Date [...] Payer (Ef fective 2004-Present) Name:Margarita Lloyd Member ID:[id number] Relation to Subscriber:Self Name:Margarita Lloyd Subscriber ID:[id number] Payer ID:[id number] Group ID:Not on file Type:Not on file Address: [facility] [address] [facility] [place] [address] COMMERCIAL GENERIC
--- OUTSIDE RECORDS SUMMARY | 2024-04-09 17:13 | XMS_ITS | Clinical Summary ---
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
--- OUTSIDE RECORDS SUMMARY | 2024-04-09 17:13 | XMS_ITS | Clinical Summary ---
Author Organization [facility] Address [address] [place] [address] Care Team Providers Care Office Agent Name Role Phone Sim López MD Primary Care Provider [phone] Allergies Active Allergy Reactions Criticality Noted Date [...] Type Department Care Team Description 01/30/2024 Telephone [facility] Scheduling [address] [place] [address] [place] from Last 3 Months Immunizations Name Administration Dates Next Due Moderna SARS-CoV-2 Monovalent Vaccination (12+ Y RS) 05/30/2020,05/02/2020 Surgical History Surgery Date Site/Laterality Comments HYSTERECTOMY Hysterectomy - (Added by Conv) [place] EXC CYST/ABERRANT BREAST TISSUE OPEN 1/> LESION Breast Surgery Lumpectomy - (Added by TW Conv) [place] CHOLECYSTECTOMY Cholecystectomy - (Added by Conv) Medical [...] on file Legal Sex Female 7:48 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
--- OUTSIDE RECORDS SUMMARY | 2024-04-09 17:13 | XMS_ITS | Encounter Summary ---
Author Organization [employer] Address [address] [place] [address] Care Team Providers Care Operations Representative Name Role Phone Unavailable Primary Care Provider Unavailabl e Encounter Details Date Type Department Care Team (Late st Contact Info) Description 05/06/1999 Outpatient Historical [facility] Sim López MD 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
[2024-04-09 17:20] VITALS: BP 145/90; PULSE 60; RESP 20; TEMP 36.3; O2SAT 97
--- NOTE | 2024-04-09 17:43 | ED_ITS ---
HPI - General Adult General Chief complaint: Upper Respiratory Infection Stated complaint: URI Time Seen by Provider: 04/09/24 17:47 Focused HPI: Margarita Lloyd is an 83 y/o female who presents with continued cough/ congestion / and now having decrease in her O2 sats with activity. She started to feel URI symptoms around 03/26 - went to the [facility] and was put on antibiotics on 03/29 - she finished those and felt like she was improving, then she started to feel more chest congestion/ productive cough - she went back to the [facility] and they tested her walking O2 and found her to desat and sent her here GENERAL: Well-appearing, well-nourished, and in no acute distress. HEAD: Normocephalic, atraumatic. CHEST: Course lung sounds bilaterally worse on the right posterior HEART: Regular rate and rhythm.? NEURO: ?Alert and oriented x3. Patient screened in triage and initial orders placed.? ?Additional care and disposition to be based upon?diagnostic testing and treatment. Related Data Home Medications ?Medication ?Instructions ?Recorded ?Confirmed ?Last Taken ?Type dorzolamide 22.3 mg-timolol 6.8 1 drp ophthalmic (eye) BID 07/17/19 07/17/19 History mg/mL eye drops (Cosopt) lisinopril 20 1 tablet PO DAILY 07/17/19 07/17/19 History mg-hydrochlorothiazide 25 mg tablet metoprolol tartrate 50 mg tablet 50 mg PO DAILY 07/17/19 07/16/19 History [id number]-szvxcqlw-usnctm 1 tablet PO DAILY 07/17/19 07/16/19 History tablet (Multivitamin 50 Plus tablet) omeprazole 20 mg capsule,delayed 20 mg PO DAILY 07/17/19 07/16/19 History release apixaban 5 mg tablet (Eliquis) mg 03/28/24 Unknown History digoxin 125 mcg (0.125 mg) tablet 03/28/24 Unknown History losartan 25 mg tablet mg 03/28/24 Unknown History metoprolol succinate 100 mg mg PO 03/28/24 Unknown History tablet,extended release 24 hr Allergies Allergy/AdvReac Type Severity Reaction Status Date / Time erythromycin base AdvReac Nausea Verified 04/09/24 17:29 [facility] Past Medical History Medical History Asthma Hx of prison use of blood thinners Pacemaker Atrial fibrillation Breast cancer Uterine cancer GERD (gastroesophageal reflux disease) Hypertension Surgical History Surgical History History of hysterectomy History of cholecystectomy H/O lumpectomy Family History Family History Mother Family history non-contributory Social History Social History Smoking status: Never smoker Substance use: never Living arrangements: with family Gender identity (if verbalized by the patient): Female Spiritual care concerns: No Course Vital Signs Vital signs: Vital Signs Temperature 36.3 C L 04/09/24 17:20 Pulse Rate 60 04/09/24 17:20 Respiratory Rate 20 04/09/24 17:20 Blood Pressure 145/90 H 04/09/24 17:20 Pulse Oximetry 97 04/09/24 17:20 Oxygen Delivery Room Air 04/09/24 17:20 Temperature 36.3 C L 04/09/24 17:20 Pulse Rate 60 04/09/24 17:20 Respiratory Rate 20 04/09/24 17:20 Blood Pressure 145/90 H 04/09/24 17:20 Pulse Oximetry 97 04/09/24 17:20 Oxygen Delivery Room Air 04/09/24 17:20 Medical Decision Making Vital Signs Vital Signs: Vital Signs Temperature 36.3 C L 04/09/24 17:20 Pulse Rate 60 04/09/24 17:20 Respiratory Rate 20 04/09/24 17:20 Blood Pressure 145/90 H 04/09/24 17:20 Pulse Oximetry 97 04/09/24 17:20 Oxygen Delivery Room Air 04/09/24 17:20 Temperature 36.3 C L 04/09/24 17:20 Pulse Rate 60 04/09/24 17:20 Respiratory Rate 20 04/09/24 17:20 Blood Pressure 145/90 H 04/09/24 17:20 Pulse Oximetry 97 04/09/24 17:20 Oxygen Delivery Room Air 04/09/24 17:20 Discharge Plan Discharge Clinical Impression: Cough Qualifiers: Cough type: acute Qualified Code(s): R05.1 - Acute cough Patient Disposition: Elopement After Seen by Prov Condition: Serious Patient Language: Maori Prescriptions: No Action metoprolol succinate 100 mg tablet extended release 24 hr PO losartan 25 mg tablet digoxin 125 mcg (0.125 mg) tablet Eliquis 5 mg tablet amoxicillin 500 mg capsule 500 mg PO Q8H Qty: 30 0RF Rx Instructions: take all doses albuterol sulfate 90 mcg/actuation HFA aerosol inhaler 2 puff inhalation QID PRN (Reason: shortness of breath or wheezing) Qty: 6.7 0RF metoprolol tartrate 50 mg Tablet 50 mg PO DAILY omeprazole 20 mg Capsule,Delayed Release(Dr/Ec) 20 mg PO DAILY lisinopril-hydrochlorothiazide 20-25 mg Tablet 1 tablet PO DAILY dorzolamide-timolol [Cosopt] 22.3-6.8 mg/mL Drops 1 drp OPHTHALMIC (EYE) BID Multivitamin 50 Plus Tablet 1 tablet PO DAILY promethazine 25 mg tablet 25 mg PO Q6H PRN (Reason: nausea and vomiting) Qty: 10 0RF Follow-up/Referrals: UNKNOWN,DOCTOR [Primary Care Provider] -
--- NOTE | 2024-04-09 21:33 | PC.NURSE ---
Pt to intake manager go ahead and victor hugo us off the list. We are leaving.
--- OUTSIDE RECORDS SUMMARY | 2024-04-09 22:05 | XMS_ITS | Clinical Summary ---
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
--- OUTSIDE RECORDS SUMMARY | 2024-04-09 22:05 | XMS_ITS | Clinical Summary ---
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 Gender Identity Not on file Sexual Orientation Not on file Last Filed Vital Signs Vital Sign Reading Time Taken Comments Blood Pressure 126/68 03/17/2020 3:52 PM KOSHER DIETARY SERVICE MANAGER Pulse 74 03/17/2020 3:52 PM KOSHER DIETARY SERVICE MANAGER Temperature 36.8 ??C (98.2 ??F) 03/17/2020 3:52 PM CS T Respiratory Rate 20 03/17/2020 3:52 PM KOSHER DIETARY SERVICE MANAGER Oxygen Saturation 98% 03/17/2020 3:52 PM KOSHER DIETARY SERVICE MANAGER Inhaled Oxygen Concentration - - Weight 94.8 kg (209 lb) 03/17/2020 3:52 PM KOSHER DIETARY SERVICE MANAGER Height 167.6 cm (5' 6 ) 03/17/2020 3:52 PM KOSHER DIETARY SERVICE MANAGER Body Mass Index 33.73 03/17/2020 3:52 PM KOSHER DIETARY SERVICE MANAGER Plan of Treatment Health Maintenance Due Date [...] age to complete this topic Insurance MEDICARE COMMERCIAL GENERIC
--- OUTSIDE RECORDS SUMMARY | 2024-04-09 22:05 | XMS_ITS | Clinical Summary ---
Author Organization [facility] Address [address] [place] [address] Care Team Providers Care Dynamicist Name Role Phone Sim López MD Primary Care Provider [phone] Allergies Active Allergy Reactions Criticality Noted Date [...] Type Department Care Team Description 01/30/2024 Telephone [facility] Scheduling [address] [place] [address] [place] from Last 3 Months Immunizations Name Administration Dates Next Due Moderna SARS-CoV-2 Monovalent Vaccination (12+ Y RS) 05/30/2020,05/02/2020 Surgical History Surgery Date Site/Laterality Comments HYSTERECTOMY Hysterectomy - (Added by Conv) [place] EXC CYST/ABERRANT BREAST TISSUE OPEN 1/> LESION Breast Surgery Lumpectomy - (Added by TW Conv) [place] CHOLECYSTECTOMY Cholecystectomy - (Added by Conv) Medical [...] on file Legal 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
--- OUTSIDE RECORDS SUMMARY | 2024-04-09 22:05 | XMS_ITS | Encounter Summary ---
Author Organization [employer] Address 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
--- OUTSIDE RECORDS SUMMARY | 2024-04-09 22:06 | XMS_ITS | Referral Summary ---
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
== END 2024-04-09 21:33 | disposition left against medical advice (07) ==
LOC: ANHED 22:03
DX: R05.1 Acute cough (principal); I48.91 Unspecified atrial fibrillation; I10 Essential (primary) hypertension; K21.9 Gastro-esophageal reflux disease without esophagitis; Z95.0 Presence of cardiac pacemaker; Z85.3 Personal history of malignant neoplasm of breast; Z85.42 Personal history of malignant neoplasm of other parts of uterus; Z90.710 Acquired absence of both cervix and uterus; Z90.49 Acquired absence of other specified parts of digestive tract; Z79.01 Long term (current) use of anticoagulants; Z79.899 Other long term (current) drug therapy
CPT/HCPCS: 71046; 80053; 83880; 99283